=== PATIENT | female | born 1950 | race Hispanic/Latino ===

== ENCOUNTER 2018-07-04 05:40 | Observation (INO) | payer MEDICARE, OTHER ==
[2018-07-01 10:29] LABS: BASOPHILS % 0.3 % (0.0-1.0); EOSINOPHILS # (AUTO) 0.2 (0.0-0.4); EOSINOPHILS % 2.3 % (0.0-6.0); LYMPHOCYTES # (AUTO) 1.5 (1.0-3.2); LYMPHOCYTES % 19.2 % (18.0-39.1); MEAN CORPUSCULAR HEMOGLOBIN 27.8 pg (28-32); MEAN CORPUSCULAR HGB CONC 33.3 g/dL (31-35); MEAN CORPUSCULAR VOLUME 83.3 fL (81-99); MONOCYTES # (AUTO) 0.6 (0.2-0.8); NEUTROPHILS # (AUTO) 5.6 (2.1-6.9); NEUTROPHILS % 70.8 % (38.7-80.0); PLATELET COUNT 225 x10e3/uL (140-360); RED BLOOD COUNT 5.04 x10e6/uL (3.6-5.1); RED CELL DISTRIBUTION WIDTH 13.7 % (11.7-14.4)
--- NOTE | 2018-07-01 10:30 | Diagnostic Imaging Report ---
EXAMINATION: CHEST 2 VIEWS INDICATION: Pre-op. COMPARISON: None FINDINGS: TUBES and LINES: None. LUNGS: Lungs are well inflated. There is no evidence of pneumonia or pulmonary edema. Asymmetric opacity in the left upper lung likely reflects manubrial first rib junction. PLEURA: No pleural effusion or pneumothorax. HEART AND MEDIASTINUM: The cardiomediastinal silhouette is unremarkable. BONES AND SOFT TISSUES: No acute osseous abnormality. UPPER ABDOMEN: No free air under the diaphragm. IMPRESSION: No acute radiographic abnormality. Signed by: Dr. Himanshu Park MD on 07/01/2018 10:27 AM
[~2018-07-04] VITALS: Ht 162.6 cm; Wt 99.8 kg
[~2018-07-04 05:40] MED LIST: ADVIL200 M1 PO; ASPIR 8181 MG PO; IRON PO; LISINOPRIL2.5 MG PO; METOPROLOL SUCC25 MG PO; NIFEDIPINE10 MG PO; SODIUM BICARBO650 MG PO; VITAMIN D3 PO
--- OUTSIDE RECORDS SUMMARY | 2018-07-04 05:42 | XMS REPORT ---
[facility] Address Unknown Phone Unavailable Care Team Providers Care Fryline Attendant Name Role Phone NICHOLE CHASE Unavailable Unavailable Payers Payer Name Policy Type Policy Number Effective Date Expiration Date Problems This patient has no known problems. Allergies, Adverse Reactions, Alerts Allergy Name Allergy Type Status Severity Reaction(s) Onset Date Inactive Date Treating Clinician Comments No Known Allergies DA Active U 2017-07-06 00:00:00 Medications This patient has no known medications. Results Test Description Test Time Test Comments Text Results Atomic Results Result Comments CHEST 2 VIEWS 2018-07-01 10:24:00 [place] [id number] Patient Name: STEVEN SMITH MR #: [id number] : 1950 Age/Sex: 68/F Req #: [id number] Adm Physician: Ordered by: NICHOLE CHASE MD Report #: [id number] Location: OR Room/Bed: Procedure: [id number] DX/CHEST 2 VIEWS Exam Date: 07/01/18 Exam Time: 1000 REPORT STATUS: Signed EXAMINATION: CHEST 2 VIEWS INDICATION: Pre-op. COMPARISON: None FINDINGS: TUBES and LINES: None. LUNGS: Lungs are well inflated. There is no evidence of pneumonia or pulmonary edema. Asymmetric opacity in the left upper lung likely reflects manubrial first rib junction. PLEURA: No pleural effusion or pneumothorax. HEART AND MEDIASTINUM: The cardiomediastinal silhouette is unremarkable. BONES AND SOFT TISSUES: No acute osseous abnormality. UPPER ABDOMEN: No free air under the diaphragm. IMPRESSION: No acute radiographic abnormality. Signed by: Dr. Bharath Jenkins MD on 07/01/2018 10:27 AM Dictated By: BHARATH JENKINS MD 1027 Transcribed By: JOESPH on 07/01/18 1027 COPY TO: NICHOLE CHASE MD - USG NDL PLACEMENT (Bxg/Asp) 2018-05-17 13:54:00 Name: STEVEN SMITH [facility] : 1950 Age/S: 68 / F [address] [facility] Unit #: [id number] Loc: [place] [address] Phys: Chandler Grover MD Acct: [id number] Dis Date: [place] [facility] [place] #: [phone] Exam Date: 05/17/2018 1115 FAX #: [phone] Reason: THYROID BX EXAMS: CPT CODE: [id number] USG NDL PLACEMENT (Bxg/Asp) [id number] REASON FOR EXAM: Thyroid mass EXAM ORDER DATE: 05/17/2018 9:28 AM PROCEDURE: - US HEAD AND NECK, - USG NDL PLACEMENT (Bxg/Asp) Axop-mn-cbwv approximate procedure time is 1 hour FINDINGS: The isthmus measured 1 cm. The right lobe of the thyroid gland measured 6.3 x 1.9 cm with a 2 cm solid nodule The left lobe of the thyroid gland measured 7.6 x 3.7 cm with a 4.9 x 3.1 cm left thyroid solid nodule Prior to the procedure, informed consent was obtained after risks and benefits of the procedure were explained to the patient. The patient agreed and wanted to proceed. The neck was prepped and aped in the usual sterile fashion. 2% local lidocaine was given. Under direct ultrasound guidance, a 14-gauge biopsy gun was advanced into the 4.9 cm left thyroid solid nodule. 3 passes were made. The needle was removed and hemostasis obtained MEDICATIONS: 1 mg of Versed, 50 mcg of fentanyl Complications: No immediate Blood loss: Less than 5 cc IMPRESSION: Technically successful ultrasound-guided core biopsy of a 4.9 cm left thyroid solid nodule at 1165 Reported and signed by: Chandler Grover M.D. CC: Prince Mustafa MD Technologist: MANE HOLLINGSWORTH RT(R),[facility] Date/Time: 05/17/2018 (6870) [id number] Orig Print D/T: S: 05/17/2018 (1386) Probe: PAGE 1 Signed Report - US HEAD AND NECK 2018-05-17 13:54:00 Name: STEVEN SMITH [facility] : 1950 Age/S: 68 / F [address] [facility] Unit #: [id number] Loc: [place] [address] Phys: Chandler Grover MD Acct: [id number] Dis Date: Status: [facility] PHONE #: [phone] Exam Date: 05/17/2018 1115 FAX #: [phone] Reason: THYROID BX EXAMS: CPT CODE: [id number] US HEAD AND NECK [id number] REASON FOR EXAM: Thyroid mass EXAM ORDER DATE: 05/17/2018 9:28 AM PROCEDURE: - US HEAD AND NECK, - USG NDL PLACEMENT (Bxg/Asp) Kxpk-qu-[id number] approximate procedure time is 1 hour FINDINGS: The isthmus measured 1 cm. The right lobe of the thyroid gland measured 6.3 x 1.9 cm with a 2 cm solid nodule The left lobe of the thyroid gland measured 7.6 x 3.7 cm with a 4.9 x 3.1 cm left thyroid solid nodule Prior to the procedure, informed consent was obtained after risks and benefits of the procedure were explained to the patient. The patient agreed and wanted to proceed. The neck was prepped and draped in the usual sterile fashion. 2% local lidocaine was given. Under direct ultrasound guidance, a 14-gauge biopsy gun was advanced into the 4.9 cm left thyroid solid nodule. 3 passes were made. The needle was removed and hemostasis obtained MEDICATIONS: 1 mg of Versed, 50 mcg of fentanyl Complications: No immediate Blood loss: Less than 5 cc IMPRESSION: Technically successful ultrasound-guided core biopsy of a 4.9 cm left thyroid solid nodule at 9580 Reported and signed by: Chandler Grover M.D. CC: Prince Mustafa MD Technologist: MANE HOLLINGSWORTH(R),[facility] Trnctb Date/Time: 05/17/2018 (4042) Prachi Orig Print D/T: S: 05/17/2018 (4130) Probe: PAGE 1 Signed Report PROTHROMBIN TIME 2018-05-13 11:43:00 PROTHROMBIN TIME PATIENT (test code=PTP) 11.9 seconds 9.0-14.0 INTERNATIONAL NORMAL RATIO (test code=INR) 1.0 0.8-1.2 The therapeutic range for oral anticoagulant therapy formost indications is an international normalized ratio (INR)of between 2.0 and 3.0. The recommended therapeutic INRrange for various clinical situations is listed below: Clinical Situation INR range Pulmonary e mbolism treatment (2.0-3.0)Venous thrombosis treatmentVenous thrombosis prophylaxis (high risk surgery)Prevention of systemic embolism from: Acute myocardial infarction Valvular heart disease Atrial fibrillation Mechanical prosthetic heart valves (2.5-3.5) THROMBOPLASTIN TIME [id number] 11:43:00* Test Item Value Reference Range Comments THROMBOPLASTIN TIME PARTIAL (test code=PTT) 34.5 seconds 25.0-36.5
[2018-07-04] MEDS ORDERED: CELECOXIB 200 MG CAP ONE (06:18)
[2018-07-04] MEDS ORDERED: GABAPENTIN 300 MG CAP ONE (06:19)
[2018-07-04] MEDS ORDERED: CEFAZOLIN SOD 2 GM/D5W 50ML 50 ML IV ONE (06:19)
[2018-07-04] MEDS ORDERED: DEXAMETHASONE SOD PHOS 10 MG/1 ML VIAL ONE (06:19)
[2018-07-04] MEDS ORDERED: ROPIVACAINE 246.25 MG, EPINEPHRINE HCL 1:1000 1ML 0.5 MG, CLONIDINE HCL 0.08 MG, KETORO... INJ ONE ×5 (06:30)
[2018-07-04] MEDS ORDERED: TRANEXAMIC ACID 1,000 MG/10 ML ML ONE (08:03)
[2018-07-04] MEDS ORDERED: VANCOMYCIN HCL 500 MG ONE (08:03)
[2018-07-04] MEDS ORDERED: MUPIROCIN 2% OINT 22 GM TUBE ONE (08:03)
[2018-07-04] MEDS ORDERED: BACITRACIN 50,000 UNIT VIAL ONE (08:04)
[2018-07-04] MEDS ORDERED: SODIUM CHLORIDE 0.9% 500ML 500 ML ONE (08:26)
[2018-07-04] MEDS ORDERED: ACETAMINOPHEN 1000 MG/100 ML 100 ML IV ONE (09:31)
[2018-07-04] MEDS ORDERED: ONDANSETRON HCL INJ 2MG/ML 2ML 2 MG/ML VIAL IV PRN (10:30)
[2018-07-04] MEDS ORDERED: ACETAMINOPHEN 650 MG SUPP PR PRN (10:30)
[2018-07-04] MEDS ORDERED: DIPHENHYDRAMINE HCL INJ 50 MG/ML VIAL IM/IV PRN (10:30)
[2018-07-04] MEDS ORDERED: DOCUSATE SODIUM 100 MG CAP PO PRN (10:30)
[2018-07-04] MEDS ORDERED: PROMETHAZINE HCL (IM) 25 MG/ML VIAL IM PRN (10:30)
[2018-07-04] MEDS ORDERED: KETOROLAC TROMETHAMINE 30 MG/ML VIAL IV PRN (10:30)
[2018-07-04] MEDS ORDERED: HYDROCODONE/APAP 5MG-325MG TAB PO PRN (10:30)
[2018-07-04] MEDS ORDERED: FENTANYL CITRATE/PF 100MCG/2 ML INJ ONE ×2 (10:48→13:13)
--- NOTE | 2018-07-04 11:40 | Diagnostic Imaging Report ---
Exam: Left knee 2 views History: Postop Comparison: None. Findings: See impression Impression: Postsurgical changes of total left knee arthroplasty with intact surgical hardware. Expected subcutaneous gas and skin crystal. No periprosthetic displaced fracture. Signed by: Dr. Varinder Montes M.D. on 07/04/2018 11:36 AM
[2018-07-04] MEDS: SODIUM CHLORIDE 0.9% 1000ML 1,000 ML IV SCH ×2 (12:02→20:19)
[2018-07-04] MEDS: ACETAMINOPHEN 1000 MG/100 ML IV SCH ×3 (12:03→23:59)
[2018-07-04 12:37] VITALS: BP 137/66
[2018-07-04 13:03] VITALS: BP 137/66
[2018-07-04] MEDS ORDERED: MIDAZOLAM HCL 2 MG/2 ML VIAL ONE (13:13)
--- NOTE | 2018-07-04 13:16 | NUR ---
ALEE SPOKE TO FELICIA WITH [facility]. PATIENT WITH PRE- ARRANGED HOME HEALTH SET UP BY DR. CHASE'S OFFICE. CM FOLLOWED UP AND PATIENT IS ACCEPTED TO RECEIVE HOME HEALTH SERVICES. PATIENT TO BE SEEN BY HOME HEALTH ON 07/06. PATIENT INFORMED AND GIVEN DISCHARGE PLAN. PROGRESS NOTES SENT TO HOME HEALTH COMPANY REQUESTED.
--- NOTE | 2018-07-04 13:19 | NUR ---
PATIENT ACCEPTED AND TO BE DISCHARGED HOME WITH [facility] (P) [phone] (F) SHIFT SUPERVISOR: FELICIA
[2018-07-04 16:46] VITALS: BP 138/67
[2018-07-04] MEDS: CEFAZOLIN SOD 1 GM/NS 50ML 50 ML IV SCH (16:49)
[2018-07-04] MEDS: CELECOXIB 200 MG CAP PO SCH (16:49)
[2018-07-04] MEDS: ASPIRIN 325 MG TAB PO SCH (16:49)
[2018-07-04] MEDS ORDERED: CELECOXIB 100 MG CAP PO SCH (17:00)
[2018-07-04] MEDS ORDERED: ONDANSETRON HCL INJ 2MG/ML 2ML 2 MG/ML VIAL ONE (17:17)
[2018-07-04] MEDS ORDERED: DEXAMETHASONE SOD PHOS INJ 4 MG/ML VIAL ONE (17:17)
[2018-07-04] MEDS ORDERED: SEVOFLURANE INHAL SOLN 250 ML PEN BTL ONE (17:17)
[2018-07-04] MEDS ORDERED: PROPOFOL IV EMULSION 10 MG/ML 20 ML VIAL ONE (17:17)
[2018-07-04] MEDS ORDERED: LIDOCAINE HCL 2% LOCAL INJ 5 ML SDV VIAL INJ ONE (17:17)
--- NOTE | 2018-07-04 17:37 | Operative Report ---
DATE OF PROCEDURE: 07/04/2018 SURGEON: Varinder Galdamez MD [facility] [employer] SUPERVISOR: Armani Guerra PA-C. PREOPERATIVE DIAGNOSIS: Osteoarthritis, left knee. POSTOPERATIVE DIAGNOSIS: Osteoarthritis, left knee. PROCEDURE: Left total knee replacement with synovectomy. INDICATIONS: A 68-year-old lady with severe untreated arthritis of her left knee. She is now confined to a wheelchair, but can get around with a walker for limited distances. She presented wanting to consider left total knee replacement. The risks and benefits of the surgery were explained. The added challenges due to her body mass index and the severity of her arthritis were discussed. She stated she understood and wished to proceed. PROCEDURE IN DETAIL: The patient was brought to the operating room and placed under general anesthetic. She received prophylactic antibiotics and a regional block and tranexamic acid in the holding area. Her left lower extremity was prepped and draped in a sterile manner. As noted preoperatively, her range of motion was limited from -20 degrees to 80 degrees. The extremity was exsanguinated and a proximal tourniquet was inflated to 300 mmHg. A preoperative time-out was performed. An anterior approach with a medial parapatellar arthrotomy was performed. Extensive synovitis was encountered. Soft tissue releases were performed to bring the knee up into flexion with the patella everted. Large marginal osteophytes were removed. There was no evidence of meniscal remnants at all. The ACL was chronically absent. The proximal tibia was ultimately exposed to the extent that a extramedullary cutting guide was used to resect the proximal tibia. A 4 mm cut referencing off the more affected medial compartment was resected. A Girard and Nephew posterior stabilized LEGION knee system was used throughout the case. The tibial baseplate was noted to be a size 4. The central fin punch was impacted and attention was directed towards the distal femur. An intramedullary cutting guide was used to resect the distal femur in 5 degrees of valgus and rotation referencing off a combination of landmarks including Whitesides line, the epicondylar axis and the posterior condyles. The femoral component was a size #5. The anterior and posterior cuts were made. The notch cut was made. A trial reduction was performed. After the tibial resection, an 11 mm posterior stabilized tibial insert provided appropriate soft tissue balancing and full extension and 90 degrees of flexion. Deep flexion was limited by body habitus. Additional releases with subtotal synovectomy was performed. Extensive inflammatory synovium was excised. Massive patellofemoral osteophytes were removed. The patella was resurfaced with a 29 mm x 7.5 mm patellar button. The thickness was checked before and after and was right around 23 mm. The trial implants were all removed. A 100 mL premixed pericapsular injection was placed into the surrounding soft tissue. The knee was thoroughly irrigated with a shower tip pulsatile lavage. A diluted mixture of polymyxin and vancomycin spray was also used for irrigation throughout the case and when bone cuts were being made. The components were cemented into place using a single mix of Palacos cement preloaded with antibiotics. Care was taken to remove all extravasated cement. The wound was further irrigated while the cement cured. The arthrotomy was then carefully closed with interrupted #1 Ethibond. 500 mg of vancomycin powder was placed into the joint prior to closure. The skin was carefully closed with subcuticular Vicryl and crystal. A sterile Aquacel bandage was applied. The patient was extubated and transported to the recovery room in stable condition. Blood loss was minimal. All needle and sponge counts were correct. Varinder Galdamez MD DR/JADE /[id number]
--- NOTE | 2018-07-04 18:10 | NUR ---
PT PLACED ON CPM AT THIS TIME. 55 DEGREES.
[2018-07-04] MEDS ORDERED: ROPIVACAINE 0.5% 5 MG/ML 30 ML SDV ONE (19:14)
--- NOTE | 2018-07-04 19:20 | NUR ---
PATIENT REMOVED FROM THE CPM TO ASSIST HER WITH THE BEDPAN, RAMIRO WRAP DRESSING DRY AND INTACT TO THE LEFT LEG WITHOUT BLEEDING. PATIENT PLACED BACK ON THE CPM AT 50DEGREES, SHE DENIES PAIN. CALL LIGHT WITHIN EASY REACH, SHE'S INSTRUCTED TO CALL FOR ASSISTANCE NEEDED.
[2018-07-04 20:00] VITALS: BP 138/63
[2018-07-04] MEDS ORDERED: ZOLPIDEM TARTRATE 5 MG TAB PO PRN (21:00)
[2018-07-05] VITALS: BP 125/60
--- NOTE | 2018-07-05 00:01 | NUR ---
PATIENT C/O PAIN TO THE LEFT LEG WITH PAIN SCORE #5, MEDICATED WITH IV TYLENOL SCHEDULED. CALL LIGHT WITHIN EASY REACH, SHE'S INSTRUCTED TO CALL FOR ASSISTANCE NEEDED.
[2018-07-05] MEDS: CEFAZOLIN SOD 1 GM/NS 50ML 50 ML IV SCH ×2 (00:44→08:33)
[2018-07-05] MEDS: HYDROCODONE/APAP 7.5MG-325MG 1 EA TAB PO PRN ×2 (00:46→06:48)
--- NOTE | 2018-07-05 03:45 | NUR ---
WALKING ROUNDS MADE, PATIENT ASLEEP, SHE'S EASY TO AROUSE. NO PAIN VOICED, RAMIRO WRAP DRESSING DRY AND INTACT TO THE LEFT LEG WITHOUT BLEEDING. CALL LIGHT WITHIN EASY REACH, SHE'S INSTRUCTED TO CALL FOR ASSISTANCE NEEDED.
[2018-07-05 04:00] VITALS: BP 141/65
[2018-07-05] MEDS: ACETAMINOPHEN 1000 MG/100 ML IV SCH (05:26)
[2018-07-05 05:55] LABS: HEMATOCRIT 32.1 % (34.2-44.1); HEMOGLOBIN 10.2 g/dL (12.0-16.0)
[2018-07-05] MEDS: SODIUM CHLORIDE 0.9% 1000ML 1,000 ML IV SCH (06:19)
--- NOTE | 2018-07-05 06:50 | NUR ---
KELSEY HOSE APPLIED TO THE LEFT LEG WITH ABD PAD APPLIED TO THE INCISION SITE, PATIENT C/O PAIN TO THE LEFT LEG. MEDICATED WITH NORCO 1TAB ORDERED, PATIENT APPLIED TO THE CPM AT 65DEGREES.
[2018-07-05 08:17] VITALS: BP 143/63
[2018-07-05] MEDS: CELECOXIB 200 MG CAP PO SCH (08:33)
[2018-07-05] MEDS: ASPIRIN 325 MG TAB PO SCH (08:33)
[2018-07-05 10:14] VITALS: BP 143/63
[2018-07-05] MEDS ORDERED: ACETAMINOPHEN 1000 MG/100 ML IV PRN (10:30)
[2018-07-05] MEDS ORDERED: ONDANSETRON HCL 4 MG ORAL DISINTEGRATING TAB PO PRN (12:15)
[2018-07-05 12:33] VITALS: BP 126/60
[2018-07-05] MEDS ORDERED: ASPIRIN325 MG PO (13:00)
== END 2018-07-05 13:58 | disposition home health service (06) ==
LOC: OR 05:40 → PACU V 10:21 → MED/SURG 11:24
PROVIDERS: ADMIT Specialist; ATTEND Specialist
DX: M17.12 Unilateral primary osteoarthritis, left knee (principal); I10 Essential (primary) hypertension; Z90.49 Acquired absence of other specified parts of digestive tract; Z79.82 Long term (current) use of aspirin; Z01.810 Encounter for preprocedural cardiovascular examination; Z01.812 Encounter for preprocedural laboratory examination; N28.9 Disorder of kidney and ureter, unspecified
CPT/HCPCS: 27334; 27447; 36415 ×2; 71046; 73560; 85014; 85018; 85025; 86850; 86900; 86920; 93005; 96365; 96367; 97116; 97162; 97530 ×2; C1713; G0378 ×2; J0131 ×2; J0171; J0690 ×3; J1100 ×2; J1885; J2001; J2250; J2405; J2704; J2795; J3370; J7030; J7040

== ENCOUNTER 2018-10-25 05:47 | Observation (INO) | payer MEDICARE, OTHER ==
[2018-10-24 13:05] LABS: BASOPHILS % 0.4 % (0.0-1.0); EOSINOPHILS # (AUTO) 0.2 (0.0-0.4); EOSINOPHILS % 1.9 % (0.0-6.0); HEMATOCRIT 40.9 % (34.2-44.1); HEMOGLOBIN 13.4 g/dL (12.0-16.0); LYMPHOCYTES # (AUTO) 1.6 (1.0-3.2); LYMPHOCYTES % 18.2 % (18.0-39.1); MEAN CORPUSCULAR HEMOGLOBIN 27.2 pg (28-32); MEAN CORPUSCULAR HGB CONC 32.8 g/dL (31-35); MEAN CORPUSCULAR VOLUME 83.1 fL (81-99); MONOCYTES # (AUTO) 0.6 (0.2-0.8); MONOCYTES % 6.8 % (4.4-11.3); NEUTROPHILS # (AUTO) 6.1 (2.1-6.9); PLATELET COUNT 240 x10e3/uL (140-360); RED BLOOD COUNT 4.92 x10e6/uL (3.6-5.1); RED CELL DISTRIBUTION WIDTH 13.5 % (11.7-14.4)
[~2018-10-25] VITALS: Ht 162.6 cm; Wt 99.8 kg
[~2018-10-25 05:47] MED LIST changes: +ASPIRIN325 MG PO
[2018-10-25] MEDS ORDERED: VANCOMYCIN HCL 1,000 MG ONE (07:14)
[2018-10-25] MEDS ORDERED: SODIUM CHLORIDE 0.9% 500ML 500 ML ONE (07:14)
[2018-10-25] MEDS ORDERED: TRANEXAMIC ACID 1,000 MG/10 ML ML ONE (07:14)
[2018-10-25] MEDS ORDERED: BACITRACIN 50,000 UNIT VIAL ONE (07:15)
[2018-10-25] MEDS ORDERED: ROPIVACAINE 246.25 MG, EPINEPHRINE HCL 1:1000 1ML 0.5 MG, CLONIDINE HCL 0.08 MG, KETORO... INJ ONE ×5 (07:30)
[2018-10-25] MEDS ORDERED: DEXAMETHASONE SOD PHOS 10 MG/1 ML VIAL ONE (08:01)
[2018-10-25] MEDS ORDERED: CELECOXIB 200 MG CAP ONE (08:01)
[2018-10-25] MEDS ORDERED: GABAPENTIN 300 MG CAP ONE (08:02)
[2018-10-25] MEDS ORDERED: CEFAZOLIN SOD 1 GM/NS 50ML 100 ML IV ONE (08:03)
[2018-10-25 09:07] LABS: ANION GAP 14.5 mmol/L (8-16); CALCIUM 9.7 mg/dL (8.4-10.2); CREATININE, SERUM 1.04 mg/dL (0.57-1.11); POTASSIUM 4.5 mmol/L (3.5-5.1)
[2018-10-25] MEDS ORDERED: ONDANSETRON HCL INJ 2MG/ML 2ML 2 MG/ML VIAL IV PRN (11:00)
[2018-10-25] MEDS ORDERED: DOCUSATE SODIUM 100 MG CAP PO PRN (11:00)
[2018-10-25] MEDS ORDERED: ACETAMINOPHEN 650 MG SUPP PR PRN (11:00)
[2018-10-25] MEDS ORDERED: PROMETHAZINE HCL (IM) 25 MG/ML VIAL IM PRN (11:00)
[2018-10-25] MEDS ORDERED: DIPHENHYDRAMINE HCL INJ 50 MG/ML VIAL IM/IV PRN (11:00)
[2018-10-25] MEDS ORDERED: HYDROCODONE/APAP 7.5MG-325MG 1 EA TAB PO PRN (11:00)
[2018-10-25] MEDS ORDERED: HYDROCODONE/APAP 5MG-325MG TAB PO PRN (11:00)
[2018-10-25] MEDS ORDERED: KETOROLAC TROMETHAMINE 30 MG/ML VIAL IV PRN (11:00)
[2018-10-25] MEDS ORDERED: HYDROMORPHONE 2MG/ML 2 MG/ML ML ONE (11:10)
--- NOTE | 2018-10-25 12:20 | NUR ---
received to rm [id number] no distress noted, updated on poc voiced understanding, ivf infusing to r hand 20g no ss of infiltration noted, dsg to right knee with immobilizer in placed, no other co voiced call light in reach will continue to monitor
--- NOTE | 2018-10-25 12:29 | Diagnostic Imaging Report ---
EXAM: KNEE RIGHT 1-2 VIEWS DATE: 10/25/2018 10:46 AM INDICATION: Postop COMPARISON: Left knee radiographs from 07/04/2018 FINDINGS: There are post surgical changes from right knee arthroplasty. Surgical hardware appears intact and in anatomic alignment. There is subcutaneous gas and skin crystal likely relating to the recent surgical procedure. There is no evidence for acute fracture or dislocation. No radiopaque foreign bodies appreciated. IMPRESSION: Expected post surgical changes from recent right knee arthroplasty. Signed by: Dr. Pepe Faust MD on 10/25/2018 12:26 PM
[2018-10-25] MEDS: SODIUM CHLORIDE 0.9% 1000ML 1,000 ML IV SCH ×2 (12:33→20:46)
--- NOTE | 2018-10-25 12:41 | NUR ---
spoke with Dr. Galdamez re: clarification of CPM orders with knee immobilizer in place. informed this nurse to cancel CPM orders. pt to keep knee immobilizer in place at all times
[2018-10-25] MEDS: ACETAMINOPHEN 1000 MG/100 ML IV SCH ×3 (12:53→23:32)
[2018-10-25 13:02] VITALS: BP 112/55
--- NOTE | 2018-10-25 13:29 | Operative Report ---
DATE OF PROCEDURE: 10/25/2018 SURGEON: Varinder Galdamez MD CHEMICAL CHECKER: Armani Guerra, Certified PA. PREOPERATIVE DIAGNOSIS: Osteoarthritis, right knee. POSTOPERATIVE DIAGNOSIS: Osteoarthritis, right knee. PROCEDURE: Right total knee arthroplasty. INDICATIONS: The patient is a 68-year-old lady, who has severe neglected osteoarthritis of her right knee. She presented earlier this year and has subsequently undergone a left total knee replacement. She has made appropriate progress and would now like to have the right side done. She was previously wheelchair-bound and now she is getting around with a walker. The risks and benefits of the procedure have been discussed. The possibility for manipulation under anesthesia has been explained. All of their questions have been answered. She and her family state they understand and wish to proceed. PROCEDURE IN DETAIL: The patient was brought to the operating room and placed under general anesthetic. Her right lower extremity was prepped and draped in a sterile manner. She received prophylactic antibiotics, a regional block and tranexamic acid in the holding area. A preoperative time-out was performed. The extremity was exsanguinated and a proximal tourniquet was inflated to 300 mmHg. A slightly more extensile incision was made over the right knee. The patient demonstrated about a 10 degree flexion contracture with flexion only up to about 90 degrees. A medial parapatellar arthrotomy was performed. Blood-tinged synovial fluid was evacuated from the joint. Aggressive medial soft tissue releases were necessary to mobilize the knee. The medial tissue was paper thin and incompetent. The patella was brought up and was everted and the knee was brought up into flexion. A small lateral retinacular release was necessary to mobilize the patella. The anterior cruciate ligament was chronically deficient. There was severe deformity and wear of the medial compartment. There was no cartilage, but there was polished subchondral bone. A portion of the hamstring insertion on the posterior medial aspect of the tibia was released due to the flexion contracture. An extramedullary cutting guide was used to resect the proximal tibia. A +2 mm cut was needed for the medial deformity. Marginal osteophytes were removed. A Girard and Nephew Legion posterior stabilized knee system was used throughout the case. The tibial base plate was a size #4. The central fin punch was impacted and attention was directed towards the distal femur. An intramedullary cutting guide was used to resect the distal femur in 6 degrees of valgus and rotation referencing off a combination of landmarks including Whitesides line, the epicondylar axis, and the posterior condyles. Large marginal osteophytes were removed with an osteotome. The anterior and posterior cuts were made. The notch cut was made. Trial reductions were performed. A 9 mm posterior stabilized knee tibial insert provided appropriate soft tissue balancing in full extension and 90 degrees of flexion. Attention was directed towards the patella. Large marginal osteophytes were removed. The patella was resurfaced with a 29 mm x 9 mm patellar button. The thickness was checked before and after resurfacing and was right around 22 mm. As mentioned, a lateral retinacular release had already been performed. Patellar tracking was noted to be concentric. The trial implants were then removed. A 100 mL premixed pericapsular BROOKE injection was placed into the surrounding soft tissue. The knee was thoroughly irrigated with a shower tip pulsatile lavage. All bone cuts had been irrigated with a diluted spray mixture of polymyxin and vancomycin spray. The components were cemented into place using a single mix of Palacos cement preloaded with antibiotics. Care was taken to remove all extravasated cement. The wound was further irrigated with the pulsatile lavage while the cement cured. The proximal portion of the arthrotomy was then closed with interrupted #1 Ethibond. The knee was put through flexion and extension to ensure a secure closure. After about 3 stitches distal to the patella, the soft tissue was nothing more than fatty tissue. There was really nothing to repair. For this reason, I elected postoperatively to place her into a knee immobilizer. The skin was closed carefully with subcuticular Vicryl and crystal. Once again, the subcutaneous tissue was very thin and frail. Of note, we did sprinkle 500 mg of vancomycin powder into the joint prior to closing the arthrotomy. A sterile bandage was applied. She was placed into a knee immobilizer. She was extubated and transported to the recovery room in stable condition. Varinder Galdamez MD DR/JADE /[id number]
--- NOTE | 2018-10-25 15:19 | NUR ---
HOME HEALTH WITH HOME CARE PROVIDERS CONFIRMED WITH ROQUE RHODA [phone] SPOKE WITH DAUGHTER EDGARD ALMONTE [phone] WHOM STATES PT HAS WALKER WITH WHEELS AND 3 IN 1 FROM LAST SURGERY STILL AND IS DECLINING, CALLED AND SPOKE WITH MARIA ANTONIA AT [address] [phone] AND LET KNOW SHE ALREADY HAS, DR CHASE DC THE CPM HERE AT HOSPITAL, EMAILED DR CHASE OFFICE TO DETERMINE IF WANTS CANCELLED AT HOME, NOTIFIED MARIA ANTONIA OF THE DC HERE SHE WILL CALL DAUGHTER TO DETERMINE IF THE CPM IS NEEDED AT HOME, CURRENTLY PT HAS AN IMMOBILIZER.
[2018-10-25] MEDS: CEFAZOLIN SOD 1 GM/NS 50ML 50 ML IV SCH (16:21)
[2018-10-25] MEDS: ASPIRIN 325 MG TAB PO SCH (16:21)
[2018-10-25] MEDS: CELECOXIB 200 MG CAP PO SCH (16:22)
[2018-10-25] MEDS ORDERED: CELECOXIB 100 MG CAP PO SCH (17:00)
[2018-10-25 17:09] VITALS: BP 110/52
[2018-10-25] MEDS ORDERED: ROPIVACAINE 0.5% 5 MG/ML 30 ML SDV ONE (18:22)
[2018-10-25] MEDS ORDERED: MIDAZOLAM HCL 2 MG/2 ML VIAL ONE (18:31)
[2018-10-25] MEDS ORDERED: FENTANYL CITRATE/PF 100MCG/2 ML INJ ONE (18:31)
[2018-10-25] MEDS ORDERED: ONDANSETRON HCL INJ 2MG/ML 2ML 2 MG/ML VIAL ONE (19:00)
[2018-10-25] MEDS ORDERED: SEVOFLURANE INHAL SOLN 250 ML PEN BTL ONE (19:00)
[2018-10-25] MEDS ORDERED: ACETAMINOPHEN 1000 MG/100 ML IV ONE (19:00)
[2018-10-25] MEDS ORDERED: LIDOCAINE HCL 2% LOCAL INJ 5 ML SDV VIAL INJ ONE (19:00)
[2018-10-25] MEDS ORDERED: PROPOFOL IV EMULSION 10 MG/ML 20 ML VIAL ONE (19:00)
--- NOTE | 2018-10-25 19:00 | NUR ---
RECEIVED PATIENT IN BEDSIDE REPORT. PATIENT RESTING IN BED, IMMOBILIZER TO R KNEE IN PLACE. NO PAIN REPORTED. FAMILY MEMBERS AT BEDSIDE. NO S&S OF DISTRESS NOTED. R HAND 20G IV ASYMPTOMATIC, INTACT, AND PATENT. BED LOCKED IN LOWEST POSITION, SIDE RAILS UPX2, CALL LIGHT IN REACH.
--- NOTE | 2018-10-25 19:18 | NUR ---
report given to supervisor blueprinting and photocopy rn, pt in stable condition, call light in reach will continue to monitor
--- NOTE | 2018-10-25 19:45 | NUR ---
PATIENT REPORTS A FAMILY MEMBER BROUGHT HER FOOD AND SHE WAS ABLE TO EAT IT WITHOUT FEELING NAUSEATED OR VOMITING.
[2018-10-25 20:00] VITALS: BP 122/64
[2018-10-25] MEDS ORDERED: ZOLPIDEM TARTRATE 5 MG TAB PO PRN (21:00)
[2018-10-25 21:15] VITALS: BP 122/64
[2018-10-26] VITALS: BP 126/57
[2018-10-26] MEDS: CEFAZOLIN SOD 1 GM/NS 50ML 50 ML IV SCH ×2 (00:09→09:25)
[2018-10-26 04:00] VITALS: BP 106/53
[2018-10-26] MEDS: ACETAMINOPHEN 1000 MG/100 ML IV SCH (05:56)
[2018-10-26 06:10] LABS: HEMATOCRIT 33.2 % (34.2-44.1)
[2018-10-26] MEDS: SODIUM CHLORIDE 0.9% 1000ML 1,000 ML IV SCH (06:46)
--- NOTE | 2018-10-26 06:58 | Consultation ---
DATE OF CONSULTATION: REASON FOR CONSULTATION: Postop medical management. HISTORY OF PRESENT ILLNESS: The patient is a 68-year-old female, status post right knee arthroplasty for end-stage osteoarthritis. She is doing well postoperatively with minimal pain in the right knee and denies any fever, chills, nausea, vomiting, headache, shortness of breath, or dizziness on review of systems. PAST MEDICAL HISTORY: Significant for hypertension. MEDICATIONS: See MAR. ALLERGIES: NONE. SOCIAL HISTORY: Nonsmoker. Nondrinker. . FAMILY HISTORY: Noncontributory. PHYSICAL EXAMINATION: VITAL SIGNS: Temperature is 96.3, pulse 67, blood pressure 126/57, and sats 98% on room air. GENERAL: No apparent distress, lying in bed. LUNGS: Clear to auscultation bilaterally. NECK: Supple. No lymphadenopathy. CARDIOVASCULAR: Regular rate and rhythm. ABDOMEN: Good bowel sounds. Soft and nontender. EXTREMITIES: No clubbing or cyanosis. Right knee is bandaged with no seepage. NEUROLOGIC: Nonfocal. ASSESSMENT AND PLAN: 1. Right knee pain. We will continue with postoperative care and physical therapy. 2. Anemia. We will check a CBC. 3. Hypertension. Continue with home medications and monitor blood pressure. 4. Elevated sugars. We will continue to monitor. 5. Bradycardia. We will continue to monitor along since she is asymptomatic. Please see hospital chart for full details. MD MARY Trotter/JADE /[id number]
--- NOTE | 2018-10-26 07:06 | NUR ---
received patient lying in bed with eyes open and Resp even and unlabored. no c/o pain at this time. call light within reach.
[2018-10-26 07:30] VITALS: BP 126/61
[2018-10-26 08:16] VITALS: BP 126/61
[2018-10-26] MEDS ORDERED: ONDANSETRON HCL 4 MG ORAL DISINTEGRATING TAB PO PRN (09:15)
[2018-10-26] MEDS: CELECOXIB 200 MG CAP PO SCH (09:25)
[2018-10-26] MEDS: ASPIRIN 325 MG TAB PO SCH (09:25)
[2018-10-26] MEDS ORDERED: ACETAMINOPHEN 1000 MG/100 ML IV PRN (11:00)
--- NOTE | 2018-10-26 11:35 | NUR ---
Patient is to be discharge to home today. PIV to right hand discontinue, catheter tip intact, no bleeding noted. Respiration even and unlabored without SOB. Patient is waiting for the son to pick her up.
[2018-10-26 12:00] VITALS: BP 136/71
[2018-10-26 15:00] VITALS: BP 133/63
--- NOTE | 2018-10-26 15:40 | NUR ---
patient d/c home with all personal belongings, and d/c instructions. escorted to front lobby entrance where son awaited in private auto. safely transferred into auto.
== END 2018-10-26 15:40 | disposition home or self-care (01) ==
LOC: OR 05:47 → PACU V 10:48 → MED/SURG 12:15
PROVIDERS: ADMIT Specialist; ATTEND Specialist
DX: M17.0 Bilateral primary osteoarthritis of knee (principal); Z96.652 Presence of left artificial knee joint; I10 Essential (primary) hypertension; E16.2 Hypoglycemia, unspecified; G89.18 Other acute postprocedural pain; R00.1 Bradycardia, unspecified; D64.9 Anemia, unspecified
CPT/HCPCS: 27447; 36415 ×3; 73560; 80048; 85014; 85018; 85025; 86850; 86900; 86920; 93005; 97116; 97162; 97530 ×2; C1713 ×3; G0378 ×2; J0131 ×2; J0171; J0690 ×2; J1100; J1170; J1885; J2001; J2250; J2405; J2704; J2795; J3010; J3370; J7030; J7040

== ENCOUNTER → 2019-09-19 | Outpatient (CLI) | payer MEDICARE, OTHER ==
[~2019-09-19] MED LIST changes: +IOPAMIDOL 370 MG/ML 200 ML INFUS..BTL INJ ONE; +SODIUM CHLORIDE 0.9% 500ML 500 ML ONE; +SODIUM CHLORIDE 0.9% 50ML 50 ML ONE
[2019-09-19 13:37] LABS: CREATININE, SERUM 1.36 mg/dL (0.57-1.11)
--- NOTE | 2019-09-19 14:39 | Diagnostic Imaging Report ---
ADDENDUM #1 Few patchy opacities of the visualized lower lungs may be infectious in etiology. Signed by: Michael Mcdaniel MD on 09/19/2019 2:41 PM ORIGINAL REPORT EXAM: CT Abdomen and Pelvis WITH contrast INDICATION: ^[id number] ^[id number] ^ABD PAIN COMPARISON: None. TECHNIQUE: Abdomen and pelvis were scanned utilizing a multidetector helical scanner from the lung base to the pubic symphysis after administration of IV contrast. Coronal and sagittal reformations were obtained. Routine protocol was performed. Scan was performed when during portal venous phase. IV CONTRAST: 100 mL of Isovue 370 ORAL CONTRAST: Water COMPLICATIONS: None RADIATION DOSE: Total DLP: 618 mGy*cm Estimated effective dose: (DLP x 0.015 x size factor) mSv CTDIvol has been reviewed. It is below the limits set by the Radiation Protocol Committee (RPC). Dose modulation, iterative reconstruction, and/or weight based adjustment of the mA/kV was utilized to reduce the radiation dose to as low as reasonably achievable. FINDINGS: LINES and TUBES: None. LOWER THORAX: Subtle patchy groundglass opacities of the visualized lower lungs, notably of the right middle lobe and lingula. Small hiatal hernia. HEPATOBILIARY: No focal hepatic lesions. No biliary ductal dilation. GALLBLADDER: Surgically absent. SPLEEN: No splenomegaly. PANCREAS: No focal masses or ductal dilatation. ADRENALS: No adrenal nodules KIDNEYS/URETERS: Kidneys enhance symmetrically. No hydronephrosis. Multiple bilateral renal cortical cysts, largest 3.8 cm in the left kidney. Several nonobstructing left intrarenal calculi, largest 7 mm. GI TRACT: No abnormal distention, wall thickening, or evidence of bowel obstruction. Scattered colonic diverticulosis. Appendix is normal. PELVIC ORGANS/BLADDER: Grossly unremarkable. LYMPH NODES: No lymphadenopathy. VESSELS: Unremarkable. PERITONEUM / RETROPERITONEUM: No free air or fluid. BONES: No acute osseous abnormality. L1 vertebral body hemangioma. SOFT TISSUES: 2.9 cm fat-containing ventral hernia. Tiny umbilical hernia. IMPRESSION: No acute abdominal or pelvic abnormality. Signed by: Michael Mcdaniel MD on 09/19/2019 2:36 PM
== END ==
LOC: CT 12:53
PROVIDERS: ATTEND Family Medicine
DX: R10.9 Unspecified abdominal pain (principal); N20.0 Calculus of kidney; N28.1 Cyst of kidney, acquired; K44.9 Diaphragmatic hernia without obstruction or gangrene
CPT/HCPCS: 36415; 74177; 82565; 84520; 96360; J7040; Q9967

== ENCOUNTER → 2019-11-10 | Outpatient (CLI) | payer MEDICARE, OTHER ==
[~2019-11-10] MED LIST changes: -IOPAMIDOL 370 MG/ML 200 ML INFUS..BTL INJ ONE; -SODIUM CHLORIDE 0.9% 500ML 500 ML ONE; -SODIUM CHLORIDE 0.9% 50ML 50 ML ONE
--- NOTE | 2019-11-10 10:34 | Diagnostic Imaging Report ---
EXAMINATION: ANKLE 3 + VIEWS RIGHT INDICATION: Ankle trauma COMPARISON: None FINDINGS: AP, oblique and lateral images of the right ankle demonstrate no acute fracture or dislocation. The ankle mortise is intact and symmetric. Mild right ankle soft tissue swelling. Small plantar calcaneal spur. IMPRESSION: Mild right ankle soft tissue swelling. No underlying acute osseous injury. Signed by: German Stapleton MD on 11/10/2019 10:31 AM
== END ==
LOC: RAD 09:45
PROVIDERS: ATTEND Family Medicine
DX: S99.911A Unspecified injury of right ankle, initial encounter (principal); M25.471 Effusion, right ankle

== ENCOUNTER → 2020-07-23 | Outpatient (CLI) | payer MEDICARE, OTHER | LOC: RAD 09:50 | PROVIDERS: ATTEND Internal Medicine Rheumatology | DX: R76.8 Other specified abnormal immunological findings in serum (principal); M54.2 Cervicalgia; M25.512 Pain in left shoulder; M25.511 Pain in right shoulder; M25.532 Pain in left wrist; M25.531 Pain in right wrist; M79.642 Pain in left hand; M79.641 Pain in right hand; M79.672 Pain in left foot; M79.671 Pain in right foot | CPT/HCPCS: 72050 ==

== ENCOUNTER → 2020-09-12 | Outpatient (CLI) | payer MEDICARE | LOC: CT 10:48 | PROVIDERS: ATTEND Physician Assistant | DX: M54.2 Cervicalgia (principal) | CPT/HCPCS: 72125 ==

== ENCOUNTER → 2020-09-12 | Outpatient (CLI) | payer MEDICARE | LOC: MRI 10:11 | PROVIDERS: ATTEND Physician Assistant | DX: M54.2 Cervicalgia (principal) | CPT/HCPCS: 72141 ==

== ENCOUNTER 2020-11-29 10:10 | Inpatient (IN) | payer MEDICARE, OTHER ==
[2020-11-29] VITALS (17 sets, daily range): BP systolic 98–134; BP diastolic 68–96
[~2020-11-29] VITALS: Ht 162.6 cm; Wt 99.8 kg
[2020-11-29] MEDS ORDERED: AMIODARONE 900MG 500 ML IV STA (10:22)
[2020-11-29] MEDS ORDERED: AMIODARONE HCL 150 MG/100 ML BAG IV ONE (10:30)
[2020-11-29] MEDS ORDERED: AMIODARONE HCL INJ 150MG/3ML IV ONE (10:45)
[2020-11-29 10:48] LABS: BASOPHILS # (AUTO) 0.1 (0.0-0.1); BASOPHILS % 0.9 % (0.0-1.0); EOSINOPHILS # (AUTO) 0.2 (0.0-0.4); EOSINOPHILS % 3.3 % (0.0-6.0); HEMATOCRIT 47.5 % (34.2-44.1); LYMPHOCYTES # (AUTO) 1.2 (1.0-3.2); LYMPHOCYTES % 21.1 % (18.0-39.1); MEAN CORPUSCULAR HEMOGLOBIN 28.1 pg (28-32); MEAN CORPUSCULAR HGB CONC 31.6 g/dL (31-35); MONOCYTES # (AUTO) 0.5 (0.2-0.8); MONOCYTES % 8.6 % (4.4-11.3); NEUTROPHILS # (AUTO) 3.8 (2.1-6.9); NEUTROPHILS % 65.9 % (38.7-80.0); PLATELET COUNT 207 x10e3/uL (140-360); RED BLOOD COUNT 5.34 x10e6/uL (3.6-5.1); RED CELL DISTRIBUTION WIDTH 18.9 % (11.7-14.4)
[2020-11-29] MEDS ORDERED: DEXTROSE 5% 100ML 200 ML IV ONE (10:58)
[2020-11-29 11:12] LABS: ALBUMIN 3.9 g/dL (3.5-5.0); ALBUMIN/GLOBULIN RATIO 1.1 (0.8-2.0); ANION GAP 18.1 mmol/L (8-16); CALCIUM 9.2 mg/dL (8.4-10.2); CREATININE, SERUM 0.95 mg/dL (0.57-1.11); POTASSIUM 3.1 mmol/L (3.5-5.1)
[2020-11-29] MEDS ORDERED: BENZOCAINE 20% SPR 60 ML CAN ONE (11:52)
[2020-11-29] MEDS ORDERED: SODIUM CHLORIDE 0.9% 1000ML 1,000 ML ONE (11:52)
[2020-11-29] MEDS ORDERED: POTASSIUM CHLORIDE 20MEQ/100ML 200 ML IV ONE (12:15)
[2020-11-29] MEDS ORDERED: ONDANSETRON HCL INJ 2MG/ML 2ML 2 MG/ML VIAL ONE (15:35)
[2020-11-29] MEDS: AMIODARONE HCL 200 MG TAB PO SCH (17:00)
[2020-11-29] MEDS ORDERED: FLECAINIDE ACE100 MG PO (18:22)
[2020-11-29] MEDS ORDERED: ELIQUIS5 MG PO (18:22)
[2020-11-29] MEDS ORDERED: ARAVA20 MG PO (18:23)
[2020-11-29] MEDS ORDERED: MORPHINE SULFATE INJ 2 MG/ML SYR IV PRN (21:30)
[2020-11-29] MEDS: PROMETHAZINE 12.5MG/ NACL 0.9% 12.5 MG/50 ML BAG IV PRN (22:17)
[2020-11-29] MEDS ORDERED: SODIUM CHLORIDE 0.9% 250ML 250 ML ONE (22:19)
[2020-11-30] VITALS (8 sets, daily range): BP systolic 122–149; BP diastolic 96–103
[2020-11-30] MEDS: PROMETHAZINE 12.5MG/ NACL 0.9% 12.5 MG/50 ML BAG IV PRN ×2 (03:00→08:46)
[2020-11-30] MEDS: AMIODARONE HCL 200 MG TAB PO SCH ×2 (08:46→16:49)
[2020-11-30 14:54] LABS: ALBUMIN 3.6 g/dL (3.5-5.0); ALBUMIN/GLOBULIN RATIO 1.2 (0.8-2.0); ANION GAP 17.7 mmol/L (8-16); CREATININE, SERUM 1.58 mg/dL (0.57-1.11); POTASSIUM 4.7 mmol/L (3.5-5.1)
[2020-11-30] MEDS: METOPROLOL SUCCINATE 25 MG TAB XL PO SCH (16:49)
[2020-11-30] MEDS ORDERED: MORPHINE SULFATE INJ 2 MG/ML SYR IV PRN (17:30)
[2020-11-30] MEDS ORDERED: DEXTROSE 5%/0.9% SOD CHL 1,000 ML IV ONE (18:30)
[2020-12-01] VITALS: BP 125/69
[2020-12-01 04:00] VITALS: BP 132/93
[2020-12-01 06:26] LABS: BASOPHILS # (AUTO) 0.1 (0.0-0.1); BASOPHILS % 1.5 % (0.0-1.0); EOSINOPHILS # (AUTO) 0.1 (0.0-0.4); HEMATOCRIT 46.6 % (34.2-44.1); HEMOGLOBIN 13.7 g/dL (12.0-16.0); LYMPHOCYTES # (AUTO) 1.8 (1.0-3.2); LYMPHOCYTES % 30.4 % (18.0-39.1); MEAN CORPUSCULAR HEMOGLOBIN 28.5 pg (28-32); MEAN CORPUSCULAR HGB CONC 29.4 g/dL (31-35); MEAN CORPUSCULAR VOLUME 97.1 fL (81-99); MONOCYTES # (AUTO) 0.6 (0.2-0.8); MONOCYTES % 9.5 % (4.4-11.3); NEUTROPHILS # (AUTO) 3.4 (2.1-6.9); NEUTROPHILS % 56.4 % (38.7-80.0); PLATELET COUNT 121 x10e3/uL (140-360); RED CELL DISTRIBUTION WIDTH 19.4 % (11.7-14.4)
[2020-12-01 06:45] LABS: ALBUMIN 3.1 g/dL (3.5-5.0); ANION GAP 14.7 mmol/L (8-16); BILIRUBIN,DIRECT 1.1 mg/dL (0.0-0.5); CALCIUM 8.6 mg/dL (8.4-10.2); CREATININE, SERUM 1.17 mg/dL (0.57-1.11); POTASSIUM 3.7 mmol/L (3.5-5.1)
[2020-12-01] MEDS: AMIODARONE HCL 200 MG TAB PO SCH (08:42)
[2020-12-01] MEDS: METOPROLOL SUCCINATE 25 MG TAB XL PO SCH (08:43)
[2020-12-01 08:44] VITALS: BP 139/78
[2020-12-01] MEDS ORDERED: LISINOPRIL 2.5 MG TAB PO SCH (09:00)
[2020-12-01] MEDS ORDERED: SODIUM BICARBONATE 650 MG TAB PO SCH (09:00)
[2020-12-01] MEDS ORDERED: APIXABAN 5 MG TABLET PO SCH (09:00)
[2020-12-01 12:00] VITALS: BP 132/89
[2020-12-01] MEDS ORDERED: AMIODARONE HCL200 MG PO (13:19)
== END 2020-12-01 13:55 | disposition home or self-care (01) | DRG 309 ==
LOC: ER 10:15 → CATH LAB 11:45 → ERHOLD 12:24 → MED/SURG3 17:50 → OBSVTOIN 11-30 13:30
PROVIDERS: ADMIT Internal Medicine; ATTEND Internal Medicine
PROC: B24BZZ4 Ultrasonography of Heart with Aorta, Transesophageal (ICD-10-PCS; principal; 2020-11-29)
PROC: 5A2204Z Restoration of Cardiac Rhythm, Single (ICD-10-PCS; 2020-11-29)
DX: I48.91 Unspecified atrial fibrillation (principal); N17.9 Acute kidney failure, unspecified; D84.821 Immunodeficiency due to drugs; Z79.01 Long term (current) use of anticoagulants; E78.5 Hyperlipidemia, unspecified; Z90.49 Acquired absence of other specified parts of digestive tract; Z96.652 Presence of left artificial knee joint; Z20.822 Contact with and (suspected) exposure to COVID-19; Z91.14 Patient's other noncompliance with medication regimen; I50.9 Heart failure, unspecified; R11.2 Nausea with vomiting, unspecified; Z79.52 Long term (current) use of systemic steroids; M06.9 Rheumatoid arthritis, unspecified; I11.0 Hypertensive heart disease with heart failure
CPT/HCPCS: 36415; 71045; 74018; 74176; 80048; 80053; 80076; 83690; 83880; 84484; 85025; 93005; 93307; 93312; 93325; G0378; J2270; J2405; J2550; J3480; J7030; J7042; J7050; U0002

== ENCOUNTER 2020-12-06 19:08 | Observation (INO) | payer MEDICARE, OTHER ==
[~2020-12-06] VITALS: Ht 162.6 cm; Wt 90.7 kg
[~2020-12-06 19:08] MED LIST changes: +AMIODARONE HCL200 MG PO; +ARAVA20 MG PO; +ELIQUIS5 MG PO; +FLECAINIDE ACE100 MG PO
[2020-12-06] MEDS ORDERED: MORPHINE SULFATE INJ 2 MG/ML SYR IV STA (19:34)
[2020-12-06] MEDS ORDERED: ONDANSETRON HCL INJ 2MG/ML 2ML 2 MG/ML VIAL IV STA (19:34)
[2020-12-06] MEDS ORDERED: METOPROLOL TARTRATE INJ 1 MG/ML VIAL IV ONE ×2 (19:45→22:00)
[2020-12-06] MEDS ORDERED: SODIUM CHLORIDE 0.9% 1000ML 1,000 ML IV ONE (19:45)
[2020-12-06 19:50] LABS: BASOPHILS # (AUTO) 0.1 (0.0-0.1); BASOPHILS % 1.1 % (0.0-1.0); EOSINOPHILS # (AUTO) 0.1 (0.0-0.4); EOSINOPHILS % 1.4 % (0.0-6.0); HEMATOCRIT 45.1 % (34.2-44.1); HEMOGLOBIN 14.6 g/dL (12.0-16.0); LYMPHOCYTES # (AUTO) 1.3 (1.0-3.2); LYMPHOCYTES % 19.3 % (18.0-39.1); MEAN CORPUSCULAR HEMOGLOBIN 28.6 pg (28-32); MEAN CORPUSCULAR HGB CONC 32.4 g/dL (31-35); MEAN CORPUSCULAR VOLUME 88.4 fL (81-99); MONOCYTES # (AUTO) 0.4 (0.2-0.8); MONOCYTES % 6.6 % (4.4-11.3); NEUTROPHILS # (AUTO) 4.6 (2.1-6.9); NEUTROPHILS % 71.1 % (38.7-80.0); PLATELET COUNT 202 x10e3/uL (140-360); RED CELL DISTRIBUTION WIDTH 19.3 % (11.7-14.4)
[2020-12-06 20:01] LABS: INR 1.82; PROTHROMBIN TIME 21.7 seconds (11.9-14.5)
[2020-12-06 20:08] LABS: ALBUMIN 3.6 g/dL (3.5-5.0); ALBUMIN/GLOBULIN RATIO 1.1 (0.8-2.0); ANION GAP 18.4 mmol/L (8-16); CALCIUM 9.1 mg/dL (8.4-10.2); CREATININE, SERUM 1.22 mg/dL (0.57-1.11); POTASSIUM 3.4 mmol/L (3.5-5.1)
[2020-12-06 20:14] LABS: CREATINE KINASE MB 1.1 ng/mL (0-5.0)
[2020-12-06 20:21] LABS: AMYLASE 22 U/L (25-125); LIPASE 19 U/L (8-78)
[2020-12-06 20:45] LABS: CLARITY,URINE SL CLOUDY (CLEAR); COLOR,URINE YELLOW (YELLOW); LEUKOCYTE ESTERASE ,URINE NEGATIVE (NEGATIVE); NITRITE,URINE NEGATIVE (NEGATIVE)
[2020-12-06 20:46] LABS: KETONES,URINE TRACE (NEGATIVE); PROTEIN,URINE DIPSTICK >=300 (NEGATIVE)
[2020-12-06 20:54] LABS: AMORPHOUS SEDIMENT,URINE FEW (FEW); BACTERIA,URINE FEW /HPF; EPITHELIAL CELLS,URINE RARE /LPF; WBC,URINE (MAN) 0-5 /HPF (0-5)
[2020-12-06] MEDS ORDERED: SODIUM CHLORIDE 0.9% 50ML 50 ML ONE (21:17)
[2020-12-06] MEDS ORDERED: IOPAMIDOL 370 MG/ML 200 ML INFUS..BTL INJ ONE (21:17)
[2020-12-06] MEDS ORDERED: ASPIRIN 81 MG CHEW TAB PO ONE (22:15)
[2020-12-06] MEDS: METOPROLOL TARTRATE 25 MG TAB PO SCH (22:41)
[2020-12-06] MEDS: MORPHINE SULFATE INJ 2 MG/ML SYR IV PRN (23:10)
[2020-12-06] MEDS: ONDANSETRON HCL INJ 2MG/ML 2ML 2 MG/ML VIAL IV PRN (23:37)
[2020-12-06 23:50] VITALS: BP 131/86
[2020-12-07] VITALS (8 sets, daily range): BP systolic 129–139; BP diastolic 85–103
[2020-12-07] MEDS: ONDANSETRON HCL INJ 2MG/ML 2ML 2 MG/ML VIAL IV PRN ×4 (05:12→19:09)
[2020-12-07] MEDS: METOPROLOL TARTRATE 25 MG TAB PO SCH ×5 (05:22→17:47)
[2020-12-07 06:25] LABS: BASOPHILS # (AUTO) 0.1 (0.0-0.1); BASOPHILS % 0.7 % (0.0-1.0); EOSINOPHILS % 0.1 % (0.0-6.0); HEMATOCRIT 47.1 % (34.2-44.1); HEMOGLOBIN 14.5 g/dL (12.0-16.0); LYMPHOCYTES % 14.8 % (18.0-39.1); MEAN CORPUSCULAR HGB CONC 30.8 g/dL (31-35); MEAN CORPUSCULAR VOLUME 90.9 fL (81-99); MONOCYTES # (AUTO) 0.5 (0.2-0.8); MONOCYTES % 7.5 % (4.4-11.3); NEUTROPHILS # (AUTO) 5.3 (2.1-6.9); NEUTROPHILS % 76.2 % (38.7-80.0); PLATELET COUNT 189 x10e3/uL (140-360); RED BLOOD COUNT 5.18 x10e6/uL (3.6-5.1); RED CELL DISTRIBUTION WIDTH 19.6 % (11.7-14.4)
[2020-12-07 06:48] LABS: ALBUMIN 3.4 g/dL (3.5-5.0); ANION GAP 19.4 mmol/L (8-16); CALCIUM 8.7 mg/dL (8.4-10.2); CHOL/HDL RATIO 3.2 (3.0-3.6); CREATININE, SERUM 1.24 mg/dL (0.57-1.11); POTASSIUM 4.4 mmol/L (3.5-5.1)
[2020-12-07] MEDS ORDERED: MORPHINE SULFATE INJ 2 MG/ML SYR IV PRN (10:15)
[2020-12-07] MEDS: MORPHINE SULFATE INJ 2 MG/ML SYR IV PRN ×3 (10:25→19:09)
[2020-12-07 14:55] LABS: CREATINE KINASE MB 0.9 ng/mL (0-5.0)
[2020-12-07] MEDS ORDERED: ACETAMINOPHEN 325 MG TAB PO PRN (16:15)
[2020-12-07] MEDS: SODIUM CHLORIDE 0.9% 1000ML 1,000 ML IV SCH (16:24)
[2020-12-07] MEDS: SUCRALFATE 1 GM TAB PO SCH ×2 (16:25→20:16)
[2020-12-07] MEDS ORDERED: DONNATAL/LIDOCAINE/MAALOX 30 ML SUSP PO ONE (17:00)
[2020-12-08 00:16] VITALS: BP 149/99
[2020-12-08] MEDS: METOPROLOL TARTRATE 25 MG TAB PO SCH ×3 (00:30→11:33)
[2020-12-08] MEDS: SODIUM CHLORIDE 0.9% 1000ML 1,000 ML IV SCH (01:10)
[2020-12-08 05:20] VITALS: BP 132/81
[2020-12-08 06:36] LABS: BASOPHILS # (AUTO) 0.1 (0.0-0.1); BASOPHILS % 0.9 % (0.0-1.0); EOSINOPHILS # (AUTO) 0.1 (0.0-0.4); EOSINOPHILS % 1.3 % (0.0-6.0); HEMATOCRIT 42.2 % (34.2-44.1); LYMPHOCYTES # (AUTO) 1.8 (1.0-3.2); LYMPHOCYTES % 27.6 % (18.0-39.1); MEAN CORPUSCULAR HGB CONC 30.8 g/dL (31-35); MEAN CORPUSCULAR VOLUME 90.8 fL (81-99); MONOCYTES # (AUTO) 0.7 (0.2-0.8); MONOCYTES % 10.8 % (4.4-11.3); NEUTROPHILS # (AUTO) 3.8 (2.1-6.9); NEUTROPHILS % 58.9 % (38.7-80.0); PLATELET COUNT 168 x10e3/uL (140-360); RED BLOOD COUNT 4.65 x10e6/uL (3.6-5.1); RED CELL DISTRIBUTION WIDTH 19.3 % (11.7-14.4)
[2020-12-08 06:55] LABS: ALBUMIN 3.1 g/dL (3.5-5.0); ALBUMIN/GLOBULIN RATIO 1.2 (0.8-2.0); ANION GAP 16.1 mmol/L (8-16); CALCIUM 8.2 mg/dL (8.4-10.2); CREATININE, SERUM 1.26 mg/dL (0.57-1.11); POTASSIUM 4.1 mmol/L (3.5-5.1)
[2020-12-08 07:10] VITALS: BP 148/88
[2020-12-08 08:00] VITALS: BP 148/88
[2020-12-08] MEDS: SUCRALFATE 1 GM TAB PO SCH ×2 (08:38→12:17)
[2020-12-08] MEDS ORDERED: NIFEDIPINE CR 30 MG TAB PO SCH (09:00)
[2020-12-08] MEDS ORDERED: SODIUM BICARBONATE 650 MG TAB PO SCH (09:00)
[2020-12-08] MEDS ORDERED: ASPIRIN 81 MG CHEW TAB PO SCH (09:00)
[2020-12-08 11:15] VITALS: BP 134/80
[2020-12-08] MEDS ORDERED: CARAFATE1 GM PO (13:02)
[2020-12-08] MEDS ORDERED: PANTOPRAZOLE SO40 MG PO (13:02)
== END 2020-12-08 14:47 | disposition home or self-care (01) ==
LOC: ER 19:35 → ERHOLD 22:19 → MED/SURG2 23:58
PROVIDERS: ADMIT Internal Medicine; ATTEND Internal Medicine
DX: I48.0 Paroxysmal atrial fibrillation (principal); I12.9 Hypertensive chronic kidney disease with stage 1 through stage 4 chronic kidney disease, or unspecified chronic kidney disease; N18.9 Chronic kidney disease, unspecified; M06.9 Rheumatoid arthritis, unspecified; Z90.49 Acquired absence of other specified parts of digestive tract; Z96.653 Presence of artificial knee joint, bilateral; Z20.822 Contact with and (suspected) exposure to COVID-19
CPT/HCPCS: 36415 ×3; 74177; 80053 ×3; 80061; 81001; 82150; 82550 ×2; 82553 ×2; 83690; 84484 ×2; 85025 ×3; 85610; 85730; 93005; 96360; 96361; 99284; C9113 ×3; G0378 ×3; J2270 ×2; J2405 ×2; J7030 ×3; Q9967; U0002

== ENCOUNTER 2020-12-19 | Inpatient (IN) | payer MEDICARE, OTHER ==
[2020-12-19] VITALS (7 sets, daily range): BP systolic 140–160; BP diastolic 97–112
[~2020-12-19] VITALS: Ht 162.6 cm; Wt 94.3 kg
[~2020-12-19] MED LIST changes: +CARAFATE1 GM PO; +PANTOPRAZOLE SO40 MG PO
[2020-12-19] MEDS ORDERED: SODIUM CHLORIDE 0.9% 1000ML 1,000 ML IV STA (00:03)
[2020-12-19] MEDS ORDERED: FAMOTIDINE 20 MG/2 ML VIAL IV STA (00:11)
[2020-12-19] MEDS ORDERED: DIGOXIN INJ 0.25 MG/ML 2 ML AMP IV STA (00:11)
[2020-12-19] MEDS ORDERED: DILTIAZEM HCL 5 MG/ML 5 ML VIAL IV STA (00:11)
[2020-12-19] MEDS ORDERED: ONDANSETRON HCL INJ 2MG/ML 2ML 2 MG/ML VIAL IV STA ×2 (00:11→01:05)
[2020-12-19] MEDS ORDERED: METOPROLOL TARTRATE INJ 1 MG/ML VIAL IV STA (00:11)
[2020-12-19] MEDS ORDERED: ASPIRIN 81 MG CHEW TAB PO ONE ×2 (00:15→02:45)
[2020-12-19 00:19] LABS: BASOPHILS # (AUTO) 0.1 (0.0-0.1); BASOPHILS % 1.1 % (0.0-1.0); EOSINOPHILS # (AUTO) 0.2 (0.0-0.4); EOSINOPHILS % 2.1 % (0.0-6.0); HEMATOCRIT 45.8 % (34.2-44.1); HEMOGLOBIN 14.5 g/dL (12.0-16.0); LYMPHOCYTES # (AUTO) 2.1 (1.0-3.2); LYMPHOCYTES % 28.4 % (18.0-39.1); MEAN CORPUSCULAR HEMOGLOBIN 28.2 pg (28-32); MEAN CORPUSCULAR HGB CONC 31.7 g/dL (31-35); MEAN CORPUSCULAR VOLUME 88.9 fL (81-99); MONOCYTES # (AUTO) 0.7 (0.2-0.8); MONOCYTES % 9.7 % (4.4-11.3); NEUTROPHILS # (AUTO) 4.3 (2.1-6.9); NEUTROPHILS % 58.3 % (38.7-80.0); PLATELET COUNT 175 x10e3/uL (140-360); RED BLOOD COUNT 5.15 x10e6/uL (3.6-5.1); RED CELL DISTRIBUTION WIDTH 18.8 % (11.7-14.4)
[2020-12-19 00:39] LABS: ALBUMIN 3.7 g/dL (3.5-5.0); ALBUMIN/GLOBULIN RATIO 1.2 (0.8-2.0); CALCIUM 8.9 mg/dL (8.4-10.2); CREATININE, SERUM 1.16 mg/dL (0.57-1.11)
[2020-12-19 00:45] LABS: CREATINE KINASE MB 1.8 ng/mL (0-5.0)
[2020-12-19] MEDS ORDERED: Morphine 4mg Syringe 4 MG/ML INJ IV PRN ×2 (01:15→02:45)
[2020-12-19 01:56] LABS: CLARITY,URINE CLEAR (CLEAR); COLOR,URINE YELLOW (YELLOW); KETONES,URINE NEGATIVE (NEGATIVE); LEUKOCYTE ESTERASE ,URINE TRACE (NEGATIVE); NITRITE,URINE NEGATIVE (NEGATIVE); PROTEIN,URINE DIPSTICK NEGATIVE (NEGATIVE); URINE UROBILINOGEN 0.2 mg/dL (0.2 - 1)
[2020-12-19 02:03] LABS: BACTERIA,URINE FEW /HPF; EPITHELIAL CELLS,URINE RARE /LPF; WBC,URINE (MAN) 0-5 /HPF (0-5)
[2020-12-19] MEDS ORDERED: PROMETHAZINE 12.5MG/ NACL 0.9% 50 ML ONE (02:15)
[2020-12-19] MEDS ORDERED: PROMETHAZINE 12.5MG/ NACL 0.9% 12.5 MG/50 ML BAG IV ONE (02:15)
[2020-12-19] MEDS ORDERED: ONDANSETRON HCL INJ 2MG/ML 2ML 2 MG/ML VIAL IV PRN (02:45)
[2020-12-19] MEDS ORDERED: SPIRONOLACTONE25 MG PO (04:35)
[2020-12-19] MEDS ORDERED: LASIX20 MG PO (04:35)
[2020-12-19] MEDS ORDERED: ARAVA20 MG PO (04:35)
[2020-12-19] MEDS ORDERED: PACERONE200 MG PO (04:35)
[2020-12-19] MEDS ORDERED: SODIUM CHLORIDE 0.9% 50ML 50 ML ONE (07:25)
[2020-12-19] MEDS ORDERED: IOPAMIDOL 370 MG/ML 200 ML INFUS..BTL INJ ONE (07:25)
[2020-12-19] MEDS ORDERED: POTASSIUM CHLORIDE 20 MEQ TAB CR PO ONE (10:00)
[2020-12-19] MEDS: PANTOPRAZOLE SOD 40 MG TABEC PO SCH (11:54)
[2020-12-19] MEDS: FUROSEMIDE 20 MG TAB PO SCH (11:54)
[2020-12-19] MEDS: ASPIRIN 325 MG TAB PO SCH (11:54)
[2020-12-19] MEDS: SUCRALFATE 1 GM TAB PO SCH ×3 (11:54→20:13)
[2020-12-19] MEDS: SPIRONOLACTONE 25 MG TAB PO SCH (11:54)
[2020-12-19] MEDS: SODIUM BICARBONATE 650 MG TAB PO SCH (11:54)
[2020-12-19 13:02] LABS: CREATINE KINASE MB 1.6 ng/mL (0-5.0)
[2020-12-19] MEDS: CARVEDILOL 12.5 MG TAB PO SCH ×2 (13:02→20:13)
[2020-12-19] MEDS ORDERED: METOPROLOL SUCCINATE 25 MG TAB XL PO SCH (17:00)
[2020-12-19] MEDS: AMIODARONE HCL 200 MG TAB PO SCH (17:27)
[2020-12-19] MEDS: FLECAINIDE ACETATE 100 MG TAB PO SCH (17:28)
[2020-12-19 20:48] LABS: CREATINE KINASE MB 1.4 ng/mL (0-5.0)
[2020-12-20] VITALS: BP 134/77
[2020-12-20 04:00] VITALS: BP 121/79
[2020-12-20 05:27] LABS: BASOPHILS # (AUTO) 0.1 (0.0-0.1); BASOPHILS % 1.3 % (0.0-1.0); EOSINOPHILS # (AUTO) 0.3 (0.0-0.4); EOSINOPHILS % 7.6 % (0.0-6.0); HEMATOCRIT 37.9 % (34.2-44.1); HEMOGLOBIN 12.4 g/dL (12.0-16.0); LYMPHOCYTES # (AUTO) 0.9 (1.0-3.2); LYMPHOCYTES % 23.9 % (18.0-39.1); MEAN CORPUSCULAR HEMOGLOBIN 28.8 pg (28-32); MEAN CORPUSCULAR HGB CONC 32.7 g/dL (31-35); MEAN CORPUSCULAR VOLUME 88.1 fL (81-99); MONOCYTES # (AUTO) 0.5 (0.2-0.8); MONOCYTES % 12.6 % (4.4-11.3); NEUTROPHILS # (AUTO) 2.1 (2.1-6.9); NEUTROPHILS % 54.3 % (38.7-80.0); PLATELET COUNT 128 x10e3/uL (140-360); RED CELL DISTRIBUTION WIDTH 18.1 % (11.7-14.4)
[2020-12-20 05:54] LABS: ALBUMIN 2.9 g/dL (3.5-5.0); ALBUMIN/GLOBULIN RATIO 1.2 (0.8-2.0); CREATININE, SERUM 1.27 mg/dL (0.57-1.11)
[2020-12-20] MEDS: SUCRALFATE 1 GM TAB PO SCH ×3 (07:30→16:30)
[2020-12-20] MEDS: PANTOPRAZOLE SOD 40 MG TABEC PO SCH (07:30)
[2020-12-20 07:40] VITALS: BP 111/88
[2020-12-20] MEDS: CARVEDILOL 12.5 MG TAB PO SCH ×2 (08:43→17:00)
[2020-12-20] MEDS: ASPIRIN 325 MG TAB PO SCH (08:43)
[2020-12-20] MEDS: SPIRONOLACTONE 25 MG TAB PO SCH (08:43)
[2020-12-20] MEDS: AMIODARONE HCL 200 MG TAB PO SCH ×2 (08:43→17:00)
[2020-12-20] MEDS: SODIUM BICARBONATE 650 MG TAB PO SCH (08:44)
[2020-12-20] MEDS: FUROSEMIDE 20 MG TAB PO SCH (08:44)
[2020-12-20] MEDS: FLECAINIDE ACETATE 100 MG TAB PO SCH ×2 (08:44→17:00)
[2020-12-20 08:45] VITALS: BP 111/88
[2020-12-20] MEDS ORDERED: NON-FORMULARY MEDICATION (Leflunomide (Arava) 20 MG) PO SCH (09:00)
[2020-12-20 12:01] VITALS: BP 119/86
[2020-12-20] MEDS ORDERED: POTASSIUM CHLORIDE 20 MEQ TAB CR PO ONE (12:30)
[2020-12-20] MEDS ORDERED: ONDANSETRON HCL 4 MG ORAL DISINTEGRATING TAB PO PRN (15:30)
[2020-12-20 16:06] VITALS: BP 112/93
[2021-01-02] MEDS ORDERED: ELIQUIS5 MG PO (11:16)
== END 2020-12-20 19:08 | disposition home or self-care (01) | DRG 392 ==
LOC: ER 00:08 → ERHOLD 02:43 → MED/SURG 03:54
PROVIDERS: ADMIT Internal Medicine; ATTEND Internal Medicine
DX: K58.9 Irritable bowel syndrome, unspecified (principal); I50.22 Chronic systolic (congestive) heart failure; D84.821 Immunodeficiency due to drugs; I48.0 Paroxysmal atrial fibrillation; E87.6 Hypokalemia; I11.0 Hypertensive heart disease with heart failure; E78.5 Hyperlipidemia, unspecified; E66.9 Obesity, unspecified; K21.9 Gastro-esophageal reflux disease without esophagitis; M06.9 Rheumatoid arthritis, unspecified; Z68.35 Body mass index [BMI] 35.0-35.9, adult; Z20.822 Contact with and (suspected) exposure to COVID-19; Z79.899 Other long term (current) drug therapy
CPT/HCPCS: 36415; 74177; 80053; 81001; 82248; 82550; 82553; 83690; 83735; 84484; 85025; 93005; 99284; J1160; J2270; J2405; J2550; J7030; Q9967; U0002

== ENCOUNTER 2021-03-29 15:03 | Inpatient (IN) | payer MEDICARE, OTHER ==
[~2021-03-29] VITALS: Ht 162.6 cm; Wt 94.3 kg
[~2021-03-29 15:03] MED LIST changes: +LASIX20 MG PO; +PACERONE200 MG PO; +SPIRONOLACTONE25 MG PO
[2021-03-29] MEDS ORDERED: ONDANSETRON HCL INJ 2MG/ML 2ML 2 MG/ML VIAL IV STA (15:25)
[2021-03-29] MEDS ORDERED: SODIUM CHLORIDE 0.9% 1000ML 1,000 ML IV SCH (15:30)
[2021-03-29] MEDS ORDERED: DICYCLOMINE HCL 20 MG/2 ML VIAL IM ONE (15:30)
[2021-03-29 15:33] LABS: BASOPHILS % 0.3 % (0.0-1.0); EOSINOPHILS % 0.1 % (0.0-6.0); HEMOGLOBIN 11.3 g/dL (12.0-16.0); LYMPHOCYTES # (AUTO) 0.7 (1.0-3.2); LYMPHOCYTES % 5.1 % (18.0-39.1); MEAN CORPUSCULAR HEMOGLOBIN 28.2 pg (28-32); MEAN CORPUSCULAR HGB CONC 31.4 g/dL (31-35); MEAN CORPUSCULAR VOLUME 89.8 fL (81-99); MONOCYTES # (AUTO) 1.3 (0.2-0.8); NEUTROPHILS # (AUTO) 11.8 (2.1-6.9); NEUTROPHILS % 84.9 % (38.7-80.0); PLATELET COUNT 146 x10e3/uL (140-360); RED BLOOD COUNT 4.01 x10e6/uL (3.6-5.1); RED CELL DISTRIBUTION WIDTH 15.8 % (11.7-14.4)
[2021-03-29] MEDS ORDERED: ONDANSETRON HCL INJ 2MG/ML 2ML 2 MG/ML VIAL ONE (15:35)
[2021-03-29 15:54] LABS: ALBUMIN 3.3 g/dL (3.5-5.0); ALBUMIN/GLOBULIN RATIO 0.9 (0.8-2.0); ANION GAP 18.5 mmol/L (8-16); CALCIUM 9.2 mg/dL (8.4-10.2); CREATININE, SERUM 1.49 mg/dL (0.57-1.11); POTASSIUM 3.5 mmol/L (3.5-5.1)
[2021-03-29 16:03] LABS: CREATINE KINASE MB 0.5 ng/mL (0-5.0)
[2021-03-29] MEDS ORDERED: PIPERACILLIN/TAZOBACTAM 2.25 GM in SODIUM CHLORIDE 0.9% 50ML 50 ML IV ONE (16:15)
[2021-03-29] MEDS ORDERED: IOPAMIDOL 370 MG/ML 200 ML INFUS..BTL INJ ONE (16:24)
[2021-03-29] MEDS ORDERED: SODIUM CHLORIDE 0.9% 50ML 50 ML ONE (16:24)
[2021-03-29] MEDS ORDERED: ACETAMINOPHEN 325 MG TAB PO ONE (17:00)
[2021-03-29] MEDS ORDERED: CEFTRIAXONE 1 GM in SODIUM CHLORIDE 0.9% 50ML 50 ML IV ONE (17:30)
[2021-03-29 17:36] LABS: CLARITY,URINE CLOUDY (CLEAR); COLOR,URINE AMBER (YELLOW)
[2021-03-29 17:37] LABS: KETONES,URINE NEGATIVE (NEGATIVE); NITRITE,URINE NEGATIVE (NEGATIVE); PROTEIN,URINE DIPSTICK 2+ (NEGATIVE); URINE UROBILINOGEN 1 mg/dL (0.2 - 1)
[2021-03-29 17:39] LABS: LEUKOCYTE ESTERASE ,URINE LARGE (NEGATIVE)
[2021-03-29] MEDS ORDERED: SODIUM CHLORIDE 0.9% 1000ML 1,000 ML IV STA (17:40)
[2021-03-29 17:43] LABS: BACTERIA,URINE MODERATE /HPF; EPITHELIAL CELLS,URINE FEW /LPF; RBC,URINE >50 /HPF (0-5); WBC,URINE (MAN) >50 /HPF (0-5)
[2021-03-29] MEDS ORDERED: ACETAMINOPHEN 325 MG TAB PO PRN (18:30)
[2021-03-29] MEDS ORDERED: ONDANSETRON HCL INJ 2MG/ML 2ML 2 MG/ML VIAL IV PRN (18:30)
[2021-03-29] MEDS: SODIUM CHLORIDE 0.9% 1000ML 1,000 ML IV SCH (20:11)
[2021-03-29 20:48] VITALS: BP 100/56
[2021-03-29 21:00] VITALS: BP 100/56
[2021-03-30] VITALS: BP 106/51
[2021-03-30] MEDS: SODIUM CHLORIDE 0.9% 1000ML 1,000 ML IV SCH (02:30)
[2021-03-30 04:00] VITALS: BP_SYST 102; BP_SYST 139; BP_DIAS 50; BP_DIAS 60
[2021-03-30 05:46] LABS: BASOPHILS # (AUTO) 0.1 (0.0-0.1); BASOPHILS % 0.3 % (0.0-1.0); HEMATOCRIT 28.2 % (34.2-44.1); HEMOGLOBIN 8.7 g/dL (12.0-16.0); LYMPHOCYTES # (AUTO) 1.1 (1.0-3.2); LYMPHOCYTES % 5.7 % (18.0-39.1); MEAN CORPUSCULAR HEMOGLOBIN 28.2 pg (28-32); MEAN CORPUSCULAR HGB CONC 30.9 g/dL (31-35); MEAN CORPUSCULAR VOLUME 91.6 fL (81-99); MONOCYTES # (AUTO) 1.9 (0.2-0.8); MONOCYTES % 10.4 % (4.4-11.3); NEUTROPHILS # (AUTO) 15.3 (2.1-6.9); NEUTROPHILS % 82.9 % (38.7-80.0); PLATELET COUNT 104 x10e3/uL (140-360); RED BLOOD COUNT 3.08 x10e6/uL (3.6-5.1)
[2021-03-30 06:29] LABS: ALBUMIN 2.4 g/dL (3.5-5.0); ALBUMIN/GLOBULIN RATIO 0.8 (0.8-2.0); ANION GAP 12.1 mmol/L (8-16); CALCIUM 8.1 mg/dL (8.4-10.2); CREATININE, SERUM 1.54 mg/dL (0.57-1.11); POTASSIUM 3.1 mmol/L (3.5-5.1)
[2021-03-30] MEDS ORDERED: POTASSIUM CHLORIDE 20 MEQ TAB CR PO STA (07:41)
[2021-03-30 07:46] VITALS: BP 102/46
[2021-03-30] MEDS ORDERED: CEFTRIAXONE 1 GM in SODIUM CHLORIDE 0.9% 50ML 50 ML IV SCH (09:00)
[2021-03-30] MEDS: LACTATED RINGER'S 1,000 ML INJ SCH ×2 (09:44→21:01)
[2021-03-30] MEDS: APIXABAN 5 MG TABLET PO SCH ×2 (09:44→17:02)
[2021-03-30 11:45] VITALS: BP 96/51
[2021-03-30] MEDS: CEFEPIME 1 GM in SODIUM CHLORIDE 0.9% 50ML 50 ML IV SCH ×2 (12:26→21:01)
[2021-03-30 15:51] VITALS: BP 116/55
[2021-03-30 20:00] VITALS: BP 118/51
[2021-03-30] MEDS ORDERED: INSULIN ASPART 70/30 100 UNITS/ML VIAL SC SCH (22:30)
[2021-03-31] VITALS: BP 105/46
[2021-03-31] MEDS: CEFEPIME 1 GM in SODIUM CHLORIDE 0.9% 50ML 50 ML IV SCH (05:40)
[2021-03-31] MEDS: LACTATED RINGER'S 1,000 ML INJ SCH (05:40)
[2021-03-31 06:27] LABS: BASOPHILS % 0.4 % (0.0-1.0); EOSINOPHILS # (AUTO) 0.1 (0.0-0.4); EOSINOPHILS % 1.7 % (0.0-6.0); HEMATOCRIT 27.4 % (34.2-44.1); HEMOGLOBIN 8.6 g/dL (12.0-16.0); LYMPHOCYTES # (AUTO) 0.9 (1.0-3.2); LYMPHOCYTES % 11.2 % (18.0-39.1); MEAN CORPUSCULAR HGB CONC 31.4 g/dL (31-35); MEAN CORPUSCULAR VOLUME 89.3 fL (81-99); MONOCYTES # (AUTO) 0.8 (0.2-0.8); MONOCYTES % 9.8 % (4.4-11.3); NEUTROPHILS # (AUTO) 6.2 (2.1-6.9); NEUTROPHILS % 76.3 % (38.7-80.0); RED BLOOD COUNT 3.07 x10e6/uL (3.6-5.1); RED CELL DISTRIBUTION WIDTH 16.2 % (11.7-14.4)
[2021-03-31 06:28] LABS: PLATELET COUNT 99 x10e3/uL (140-360)
[2021-03-31 06:55] LABS: ALBUMIN 2.3 g/dL (3.5-5.0); ANION GAP 11.4 mmol/L (8-16); BILIRUBIN,DIRECT 0.4 mg/dL (0.0-0.5); CALCIUM 8.3 mg/dL (8.4-10.2); CREATININE, SERUM 1.2 mg/dL (0.57-1.11); MAGNESIUM 1.7 MG/DL (1.3-2.1); POTASSIUM 3.4 mmol/L (3.5-5.1)
[2021-03-31 08:22] VITALS: BP 149/61
[2021-03-31] MEDS ORDERED: POTASSIUM CHLORIDE 20 MEQ TAB CR PO STA (08:49)
[2021-03-31 08:54] VITALS: BP 149/61
[2021-03-31] MEDS: APIXABAN 5 MG TABLET PO SCH (09:22)
[2021-03-31 12:37] VITALS: BP 132/64
[2021-03-31] MEDS ORDERED: CIPRO500 MG PO (13:21)
[2021-03-31] MEDS ORDERED: CEFTRIAXONE 1 GM in SODIUM CHLORIDE 0.9% 50ML 50 ML IV ONE (13:30)
== END 2021-03-31 15:47 | disposition home or self-care (01) | DRG 872 ==
LOC: ER 15:30 → ERHOLD 18:50 → MED/SURG2 20:42
PROVIDERS: ADMIT Internal Medicine; ATTEND Internal Medicine
DX: A41.51 Sepsis due to Escherichia coli [E. coli] (principal); N10 Acute pyelonephritis; D84.821 Immunodeficiency due to drugs; N28.9 Disorder of kidney and ureter, unspecified; R65.20 Severe sepsis without septic shock; I48.91 Unspecified atrial fibrillation; M06.9 Rheumatoid arthritis, unspecified; I10 Essential (primary) hypertension; E87.6 Hypokalemia; Z90.49 Acquired absence of other specified parts of digestive tract; Z96.652 Presence of left artificial knee joint; Z79.52 Long term (current) use of systemic steroids; Z20.822 Contact with and (suspected) exposure to COVID-19
CPT/HCPCS: 36415; 71045; 74177; 80048; 80053; 80076; 81001; 82550; 82553; 82948; 83540; 83605; 83690; 83735; 84466; 84484; 85025; 87040; 87071; 87086; 87186; 87205; 93005; 94799; 96361; 99284; J0500; J0692; J0696; J1815; J2405; J2543; J7030; J7121; Q9967; U0002

== ENCOUNTER 2022-05-02 23:40 | Emergency (ER) | payer MEDICARE, OTHER ==
[~2022-05-02] VITALS: Ht 162.6 cm; Wt 91.6 kg
[~2022-05-02 23:40] MED LIST changes: +ALLOPURINOL100 MG PO; +BENICAR20 MG PO; +CIPRO500 MG PO; +CLINDAMYCIN HC300 MG PO; +IBUPROFEN600 MG PO; +LEFLUNOMIDE20 MG; +PERIDEX473 M1 PO
[2022-05-02] MEDS ORDERED: ONDANSETRON HCL INJ 2MG/ML 2ML 2 MG/ML VIAL IV STA (23:58)
[2022-05-03] MEDS ORDERED: ACETAMINOPHEN 325 MG TAB PO ONE
[2022-05-03] MEDS ORDERED: SODIUM CHLORIDE 0.9% 1000ML 1,000 ML IV ONE
[2022-05-03 00:36] LABS: BASOPHILS # (AUTO) 0.1 (0.0-0.1); BASOPHILS % 0.7 % (0.0-1.0); EOSINOPHILS # (AUTO) 0.2 (0.0-0.4); EOSINOPHILS % 3.5 % (0.0-6.0); HEMATOCRIT 32.5 % (34.2-44.1); HEMOGLOBIN 9.9 g/dL (12.0-16.0); LYMPHOCYTES # (AUTO) 0.9 (1.0-3.2); LYMPHOCYTES % 13.4 % (18.0-39.1); MEAN CORPUSCULAR HEMOGLOBIN 26.4 pg (28-32); MEAN CORPUSCULAR HGB CONC 30.5 g/dL (31-35); MEAN CORPUSCULAR VOLUME 86.7 fL (81-99); MONOCYTES # (AUTO) 0.5 (0.2-0.8); MONOCYTES % 7.3 % (4.4-11.3); NEUTROPHILS # (AUTO) 5.1 (2.1-6.9); NEUTROPHILS % 74.8 % (38.7-80.0); PLATELET COUNT 231 x10e3/uL (140-360); RED BLOOD COUNT 3.75 x10e6/uL (3.6-5.1); RED CELL DISTRIBUTION WIDTH 14.7 % (11.7-14.4)
[2022-05-03 00:55] LABS: ALBUMIN 3.4 g/dL (3.5-5.0); ALBUMIN/GLOBULIN RATIO 0.9 (0.8-2.0); ANION GAP 13.9 mmol/L (8-16); CALCIUM 9.3 mg/dL (8.4-10.2); CREATININE, SERUM 1.33 mg/dL (0.57-1.11); POTASSIUM 3.9 mmol/L (3.5-5.1)
[2022-05-03 00:56] LABS: BACTERIA,URINE MODERATE /HPF; CLARITY,URINE SL CLOUDY (CLEAR); COLOR,URINE YELLOW (YELLOW); CREATINE KINASE MB 0.7 ng/mL (0-5.0); KETONES,URINE NEGATIVE (NEGATIVE); LEUKOCYTE ESTERASE ,URINE NEGATIVE (NEGATIVE); NITRITE,URINE NEGATIVE (NEGATIVE); PROTEIN,URINE DIPSTICK NEGATIVE (NEGATIVE); URINE UROBILINOGEN 0.2 mg/dL (0.2 - 1); WBC,URINE (MAN) 0-5 /HPF (0-5)
[2022-05-03 00:57] LABS: EPITHELIAL CELLS,URINE MANY /LPF
[2022-05-03] MEDS ORDERED: IOPAMIDOL 370 MG/ML 100 ML INFUS..BTL INJ ONE (01:27)
[2022-05-03] MEDS ORDERED: PAXLOVID 300-11 EACH PO (01:43)
[2022-05-03] MEDS ORDERED: ONDANSETRON ODT4 MG PO (01:43)
[2022-05-03 02:13] VITALS: BP 146/71
== END 2022-05-03 02:08 | disposition home or self-care (01) ==
LOC: ER 23:50
DX: R50.9 Fever, unspecified (principal); U07.1 COVID-19; R11.2 Nausea with vomiting, unspecified; R51.9 Headache, unspecified; R94.31 Abnormal electrocardiogram [ECG] [EKG]
CPT/HCPCS: 36415; 71045; 74177; 80053; 81001; 82550; 82553; 83605; 84484; 85025; 87040; 93005; 99284; J2405; J2543; J7030; Q9967; U0002